=== PATIENT | female | born 1955 | race Caucasian/White ===

== ENCOUNTER 2016-12-06 09:52 | Emergency (ER) | payer SELFPAY ==
[~2016-12-06 09:52] MED LIST: DIAZ5TAB PO; MOBI7.5T PO
[2016-12-06 09:58] VITALS: BP 167/82; PULSE 77; RESP 20; TEMP 97.7; O2SAT 94
[2016-12-06] MEDS ORDERED: SODIUM CHLORIDE 0.9% FLUSH 10 ML FLUSH IVF PRN (10:15)
[2016-12-06] MEDS ORDERED: ASPIRIN 81 MG CHEW TAB PO ONE (10:15)
--- NOTE | 2016-12-06 10:19 | PD ---
HPI . Left shoulder pain Chief Complaint: Musculoskeletal Complaint Time Seen by Provider: 10:08 Travel History International Travel<30 days: No Contact w/Intl Traveler<30days: No Traveled to known affect area: No History of Present Illness HPI This patient presents with the acute onset of left shoulder pain. It started about 4:00 in the morning. She states that she was fine when she went to bed last night but then had a very restless night sleeping. At one point, she turned over and noticed the pain in her left shoulder. She did take some Aleve with some relief of her pain. She reports no increased pain with movement. She does report some improvement in her pain with stretching. Pain is currently rated 6/10. She reports previous dislocation of her left shoulder. She is worried that she has suffered another dislocation. She denies any trauma. PFSH Past Surgical History Section: Yes Other Surgery: Yes (ARTHROSCOPY) Social History Alcohol Use: Yes (1-2 GLASSES WINE PER NIGHT) Tobacco Use: Yes (OCCASIONALLY) Substance Use: No Allergies-Medications (Allergen,Severity, Reaction): Coded Allergies: penicillin G (Unverified Allergy, Mild, 12/06/16) Uncoded Allergies: ALL "CILLINS" (Allergy, Mild, 08/02/06) Reported Meds & Prescriptions Reported Meds & Active Scripts Active Reported Diazepam 5 Mg Tab 5 Mg PO TID PRN Review of Systems Except as stated in HPI: all other systems reviewed are Neg General / Constitutional: Positive: Other (no diaphoresis) Cardiovascular: No: Chest Pain or Discomfort Respiratory: No: Shortness of Breath Gastrointestinal: No: Nausea Musculoskeletal: Positive: Arthralgias, No: Limited ROM Physical Exam Narrative GENERAL: Patient is awake and alert and does not appear to be in any distress. SKIN: Warm and dry with no rashes. HEAD: Normocephalic/atraumatic. EYES: Pupils are equal. Extraocular movements are intact. NECK: Full range of motion with no pain. CARDIOVASCULAR: Regular rate and rhythm. Heart sounds are normal. No murmurs, gallops or rubs. RESPIRATORY: Lungs are clear with full air movement throughout. There is no chest wall tenderness. MUSCULOSKELETAL: Tender at the left AC joint. Full range of motion of the left shoulder with no apparent discomfort. NEUROLOGICAL: Cranial nerves are grossly intact. Motor is nonfocal. PSYCHIATRIC: Appropriate mood and affect. Data Data Last Documented VS Vital Signs Date Time Temp Pulse Resp B/P (MAP) Pulse Ox O2 Delivery O2 Flow Rate FiO2 12/06/16 09:58 97.7 77 20 167/82 (110) 94 Orders Orders Electrocardiogram (12/06/16 10:02) Aspirin Chew (Aspirin Chew) (12/06/16 10:15) Sodium Chloride 0.9% Flush (Ns Flush) (12/06/16 10:15) Shoulder, Complete (>2vws) (12/06/16 10:02) [facility] Medical Decision Making Medical Screen Exam Complete: Yes Emergency Medical Condition: Yes Differential Diagnosis Differential diagnosis of joint pain includes but is not limited to arthritis, gout, sprain/strain, fracture, dislocation, bursitis Narrative Course This patient presents with a chief complaint of left shoulder pain. This complaint immediately raised concern for cardiac etiology to the nursing staff. They initiated an EKG. However, the patient refuses this stating that she knows that his heart. Shoulder X-ray>>Mild degenerative changes without fracture. Resorption of distal clavicle likely posttraumatic. The shoulder x-ray was independently viewed by me. This patient will be treated with Naprosyn and Ultram for the arthritis in her shoulder. She will be instructed to follow-up with her primary care physician for ongoing treatment. Diagnosis Primary Impression: Left shoulder pain Qualified Codes: M25.512 - Pain in left shoulder Additional Impression: Osteoarthritis of left acromioclavicular joint Patient Instructions: General Instructions, Osteoarthritis (DC) Scripts Tramadol (Ultram) 50 Mg Tab 50 MG PO Q4H Y for PAIN, #12 TAB 0 Refills Prov: Frannie Butler MD 12/06/16 Naproxen (Naprosyn) 500 Mg Tab 500 MG PO BID, #60 TAB 0 Refills Prov: Frannie Butler MD 12/06/16 Disposition: 01 DISCHARGE HOME Condition: Stable Frannie Butler MD Dec 06, 2016 10:19
--- NOTE | 2016-12-06 10:49 | RADRPT ---
EXAM DATE/TIME: 12/06/2016 10:21 [place] COMPARISON: No previous studies available for comparison. INDICATIONS : Left posterior shoulder pain, no known injury. MEDICAL HISTORY : hx of left shoulder dislocation SURGICAL HISTORY : None. ENCOUNTER: Initial ACUITY: 1 day PAIN SCORE: 8/10 LOCATION: Left posterior shoulder FINDINGS: Multiple view examination of the left shoulder demonstrates no evidence of fracture or dislocation. M ild degenerative changes. Resorption distal clavicle There is normal range of motion between internal and external rotation. Bony mineralization is normal. CONCLUSION: Mild degenerative changes without fracture. Resorption of distal clavicle likely posttraumatic. Jeffy Willams MD on December 06, 2016 at 10:46 Board Certified Radiologist. This report was verified electronically.
[2016-12-06] MEDS ORDERED: ULTR50TA5 PO (10:53)
[2016-12-06] MEDS ORDERED: NAPR500 PO (10:53)
== END 2016-12-06 11:15 | disposition home or self-care (01) ==
LOC: PHED 09:52
DX: M25.512 Pain in left shoulder (principal); M19.012 Primary osteoarthritis, left shoulder; Z72.0 Tobacco use; Z88.0 Allergy status to penicillin
CPT/HCPCS: 73030; 99283